=== PATIENT | female | born 1995 | race Caucasian/White ===

== ENCOUNTER 2017-09-24 18:17 | Emergency (ER) | payer OTHER ==
[~2017-09-24] VITALS: Ht 154.9 cm; Wt 56.0 kg
[2017-09-24 18:24] VITALS: TEMP 36.9; Ht 154.9 cm; Wt 56.0 kg
[2017-09-24] MEDS ORDERED: CEFTRIAXONE SOD 350MG/ML 1 GM VIAL IM ONE (19:30)
[2017-09-24] MEDS ORDERED: AZITHROMYCIN 250 MG TAB PO ONE (19:30)
--- NOTE | 2017-09-24 19:49 | EMERGENCY ROOM VISIT NOTE ---
History First contact with patient: 18:29 Chief Complaint: STD FEMALE Stated Complaint: STD CHECK-FEMALE TESTING History of Present Illness The patient is a 21 year old female who presents to the Emergency Room of sexually transmitted infection. She stated that she is currently asymptomatic but recently found out that her partner was tested positive for chlamydia and would like to be tested. denies any vaginal discharge, itching, nausea, vomiting, abdominal pain, fevers or chills. Denies any rash/vesicles in the genital area Her last intercourse was about 3 weeks ago and was unprotected. LMP 1 week ago Review of Systems See HPI for pertinent positives & negatives. A total of 10 systems reviewed and were otherwise negative. Constitutional: No fever, No chills Eyes: No worsening of vision ENT: No hearing loss Abdomen: No pain, No nausea, No vomiting, No diarrhea Genitourinary - Female: No dysuria, No urinary frequency, No urinary urgency , No rash, No vaginal discharge, No vaginal itching Endocrine: No fatigue Hematologic / Lymphatic: No abnormal bleeding/bruising Integumentary: No rash Past Medical/Surgical History Medical Problems: (1) Asthma (2) Deviated septum Social History Smoking Status: Never Smoker Alcohol Use: occasionally Drug Use: none Physical Exam Vital Signs Date Time Temp Pulse Resp B/P (MAP) Pulse Ox O2 Delivery O2 Flow Rate FiO2 09/24/17 18:24 36.9 80 18 124/69 96 Room Air Physical Exam GENERAL: Patient is in no acute distress. HEENT: No acute trauma, normocephalic atraumatic, mucous membranes moist, no nasal congestion, no scleral icterus. NECK: No stridor, no adenopathy, no meningismus, trachea is midline. LUNGS: Clear to auscultation bilaterally, no wheeze, no rhonchi, breath sounds equal. HEART: Without murmurs gallops or rubs, regular rate and rhythm. ABDOMEN: Soft, nontender, bowel sounds positive, no hernias, no peritonitis. EXTREMITIES: No cyanosis or edema, full range of motion of all the joints without pain or difficulty, no signs for acute trauma. NEUROLOGIC: Oriented x 3, no acute motor or sensory deficits, no focal weakness. SKIN: No rash, no jaundice, no diaphoresis. General Appearance: WD/WN, no apparent distress Eyes: normal inspection ENT: hearing grossly normal Neck: supple Respiratory/Chest: lungs clear, normal breath sounds, no accessory muscle use Cardiovascular: regular rate, rhythm Abdomen / GI: normal bowel sounds, non tender, soft Genitourinary - Female: external genitalia normal, normal pelvic exam, normal cervix, + pertinent finding ( thin whitish Discharge) Extremities: no pedal edema Neurologic/Psych: alert, normal mood/affect, oriented x 3 Medical Decision & Procedures Medications Administered 250 mg IM ceftriaxone, 1 g azithromycin by mouth Medical Decision Prior records/ancillary studies reviewed. Triage Nursing notes reviewed. The patient's history was concerning for STI considering exposure to partner with chlamydia. Vaginal speculum exam including a bimanual exam was performed with GC and chlamydia testing . Considering potential exposure she was empirically treated with 250 mg IM ceftriaxone and 1 g by mouth azithromycin. Counseled about safe sex practices/ control. Recommended to follow-up if develops any vaginal symptoms like to discharge, itching Impression Primary Impression: Exposure to chlamydia Departure Information Referrals No Doctor, Assigned (PCP) Patient Instructions Formerly [facility] Resident Tracking Resident Involvement: Resident Care Provided Care Provided: Adult ED
[2017-09-24 20:06] VITALS: BP 122/70; PULSE 72; O2SAT 98
--- NOTE | 2017-09-24 23:49 | EMERGENCY ROOM VISIT NOTE ---
History Report prepared by Beatriceibdotty: Thierno Hunter Under the Supervision of: Brie FullerO. First contact with patient: 18:29 Chief Complaint: STD FEMALE Stated Complaint: STD CHECK-FEMALE TESTING History of Present Illness The patient is a 21 year old female who presents to the Emergency Room with complaints of a possible STD exposure that occurred two and a half weeks ago. The patient states that she was having sexual intercourse with her partner two and a half weeks ago. She reports that she found out the patient was experiencing urinary symptoms and got tested for STDs over the weekend. The patient states he tested positive for Chlamydia today and informed her. She states that she has not been experiencing any symptoms for an STI. The patient denies vaginal discharge, vaginal bleeding, headache, change in vision, fevers, chest pain, shortness of breath, nausea, vomiting, diarrhea, pain with urination , and melena. The patient states that her last normal menstrual period was a week ago. She reports a history of asthma and deviated septum. Source of History: patient Onset: two and a half weeks ago Position: other (global) Quality: other (global) Timing: other (episode of exposure) Associated Symptoms: No fevers, No headache, No chest pain, No SOB, No nausea, No vomiting, No melena, No diarrhea, No urinary symptoms Review of Systems See HPI for pertinent positives & negatives. A total of 10 systems reviewed and were otherwise negative. Past Medical & Surgical Medical Problems: (1) Asthma (2) Deviated septum Family History Patient reports no known family medical history. Social History Smoking Status: Never Smoker Smokeless Tobacco Use: No Alcohol Use: occasionally Drug Use: none Marital Status: single Housing Status: lives with roommate Occupation Status: [employer] student Allergies Coded Allergies: No Known Allergies (Unverified , 09/24/17) Physical Exam Vital Signs Date Time Temp Pulse Resp B/P (MAP) Pulse Ox O2 Delivery O2 Flow Rate FiO2 09/24/17 20:06 72 20 122/70 98 09/24/17 18:24 36.9 80 18 124/69 96 Room Air Physical Exam GENERAL: Sitting up in bed, alert, well appearing, well nourished, no distress, non-toxic EYE EXAM: normal conjunctiva. OROPHARYNX: no exudate, no erythema, lips, buccal mucosa, and tongue normal and mucous membranes are moist NECK: supple, no nuchal rigidity, no adenopathy, non-tender LUNGS: Clear to auscultation. Normal chest wall mechanics HEART: no murmurs, S1 normal and S2 normal ABDOMEN: abdomen soft, non-tender, normo-active bowel sounds, no masses, no rebound or guarding. SKIN: no rashes and no bruising UPPER EXTREMITIES: upper extremities are grossly normal. LOWER EXTREMITIES: No pitting edema. NEURO EXAM: Normal sensorium, cranial nerves II-XII grossly intact, normal speech, no gross weakness of arms, no gross weakness of legs. Gross sensation intact. : See resident's note. Medical Decision & Procedures Laboratory Results Test 09/24/17 18:59 09/24/17 19:30 Laboratory results per my review. Medications Administered Medications (Trade) Dose Ordered Sig/Rama Route Start Time Stop Time Status Last Admin Dose Admin Ceftriaxone Sodium (Rocephin Im) 250 mg NOW ONCE IM 09/24/17 19:30 09/24/17 19:32 DC 09/24/17 19:59 250 MG Azithromycin (Zithromax Tab) 1,000 mg NOW ONCE PO 09/24/17 19:30 18 19:32 DC 09/24/17 19:59 1,000 MG ED Course ED COURSE: Vital signs were reviewed and showed The patients medical record was reviewed The above diagnostic studies were performed and reviewed. ED treatments and interventions as stated above. 1850: The patient was evaluated in room A09A. A complete history and physical examination was performed. 0: Ordered Azithromycin 1000 mg PO, Rocephin 250 mg IM. 1999: Upon reevaluation, the patient is resting comfortably. The resident discussed my findings with the patient and she understands and agrees with the treatment plan. Based on the patients age, coexisting illnesses, exam and lab findings the decision to treat as an outpatient was made. The patient remained stable while under my care. The patient appeared well at the time of discharge. Medical Decision Differential diagnoses includes but is not limited to appendicitis, diverticulitis, small bowel obstruction, malignancy, hernia, urinary tract infection, torsion, and ectopic (if female), perforation, trauma, infectious. Patient is a 21-year-old female who received phone call from a sexual partner that was diagnosed with chlamydia. She is completely asymptomatic. She has no other complaints. At this time we offered pelvic exam and cultures first treatment. She elected to be treated. She was given azithromycin and Rocephin. She was seen independently in the resident. She was discharged to follow-up with PCP as an outpatient. Discussed with Pt concerning signs and symptoms to watch out for. Pt was instructed to follow up with their PCP and discussed with the patient their option to return to the ED at anytime for persistent or worsening symptoms. The appropriate anticipatory guidance and out- patient management, including indications for return to the emergency department , were explained at length to the patient and understood. Medication Reconcilliation Current Medication List: was personally reviewed by me Blood Pressure Screening Patient's blood pressure: Normal blood pressure Impression Primary Impression: Exposure to chlamydia Scribe Attestation The scribe's documentation has been prepared under my direction and personally reviewed by me in its entirety. I confirm that the note above accurately reflects all work, treatment, procedures, and medical decision making performed by me. Departure Information Dispostion Home / Self-Care Referrals No Doctor, Assigned (PCP) Forms HOME CARE DOCUMENTATION FORM, IMPORTANT VISIT INFORMATION, WORK / SCHOOL INSTRUCTIONS Patient Instructions My [facility] Additional Instructions You have been examined and treated today on an emergency basis only. This is not a substitute for, or an effort to provide, complete comprehensive medical care. It is impossible to recognize and treat all injuries or illnesses in a single emergency department visit. - Return for worsening symptoms or if you develop any vaginal discharge, itching , abdominal pain or any other concerning symptoms. - You received empiric treatment for Gonorrhea and Chlamydia with azithromycin and ceftriaxone. - Recommend safe sexual practices using barrier contraception like condoms
== END 2017-09-24 20:08 | disposition home or self-care (01) ==
LOC: C.EDB 18:19 → C.EDA 20:08
DX: Z20.2 Contact with and (suspected) exposure to infections with a predominantly sexual mode of transmission (principal); J45.909 Unspecified asthma, uncomplicated

== ENCOUNTER 2017-10-21 17:14 | Emergency (ER) | payer OTHER ==
[~2017-10-21] VITALS: Ht 157.5 cm; Wt 55.9 kg
[2017-10-21 17:27] VITALS: TEMP 37; Ht 157.5 cm; Wt 55.9 kg
--- NOTE | 2017-10-21 18:50 | EMERGENCY ROOM VISIT NOTE ---
History Report prepared by Chava: Babs Bowling Under the Supervision of: Dr. Martin Pickett M.D. First contact with patient: 18:16 Chief Complaint: VAGINAL DISCHARGE Stated Complaint: SWOLLEN FEET,VAGINAL ITCHING History of Present Illness The patient is a 22 year old female who presents to the Emergency Room with complaints of persistent vaginal itching that began a few days ago. The patient states that she was in [facility] during the past week, noting that she was walking barefoot most of the time. She reports that she has been experiencing "cloudy" discharge, but denies any burning with urination or foul odor. She notes that one month ago she was treated for chlamydia and her symptoms had improve since then. The patient states that before she boarded the plane on her way back home, she noticed her feet were swelling up, but denies them being red. She notes that now her feet are back to normal size, but still has some numbness in her heels and itching in between her toes. The patient states that she has never experienced similar symptoms in her feet before. She reports she has been experiencing some chills, but denies any fevers, nausea, vomiting, or diarrhea. Source of History: patient Onset: few days ago Position: other (genitals) Quality: other (vaginal itching) Timing: other (persistent) Associated Symptoms: No fevers, No nausea, No vomiting, No diarrhea Note: Associated symptoms: feet were swollen and still has some numbness in her heels and itching in between her toes. "cloudy" discharge. Patient denies:denies her feet being red, foul odor or pain with urination. Review of Systems See HPI for pertinent positives and negatives. A total of ten systems were reviewed and were otherwise negative. Past Medical & Surgical Medical Problems: (1) Asthma (2) Deviated septum Social History Smoking Status: Never Smoker Alcohol Use: occasionally Drug Use: none Marital Status: single Housing Status: lives with roommate Occupation Status: [employer] student Current/Historical Medications Scheduled Control Pills ( Control Pills), 1 TAB PO DAILY Cetirizine (Zyrtec), 10 MG PO DAILY Ibuprofen Tab (Advil), 200 MG PO PRN UD Allergies Coded Allergies: No Known Allergies (Unverified , 10/21/17) Physical Exam Vital Signs Date Time Temp Pulse Resp B/P (MAP) Pulse Ox O2 Delivery O2 Flow Rate FiO2 10/21/17 19:15 98 18 121/93 99 Room Air 10/21/17 17:27 37.0 88 18 134/88 100 Room Air Physical Exam GENERAL: Awake, alert, well-appearing, in no distress HENT: Normocephalic, atraumatic. Oropharynx unremarkable. EYES: Normal conjunctiva. Sclera non-icteric. NECK: Supple. No nuchal rigidity. FROM. No JVD. RESPIRATORY: Clear to auscultation. CARDIAC: Regular rate, normal rhythm. Extremities warm and well perfused. Pulses equal. ABDOMEN: Soft, non-distended. No tenderness to palpation. No rebound or guarding. No masses. PELVIC: Mild amount of thick white discharge, no lesions, and no CMT or adnexal tenderness. RECTAL: Deferred. MUSCULOSKELETAL: Chest examination reveals no tenderness. The back is symmetrical on inspection without obvious abnormality. There is no CVA tenderness to palpation. No joint edema. LOWER EXTREMITIES: Scant bilateral plantar swelling otherwise no significant pedal edema or lower extremity edema. Calves are equal size bilaterally and non- tender. No discoloration. NEURO: Normal sensorium. No sensory or motor deficits noted. SKIN: No rash or jaundice noted. Medical Decision & Procedures Laboratory Results 10/21/17 18:40 Red Blood Count 4.54, Mean Corpuscular Volume 91.2, Mean Corpuscular Hemoglobin 30.8, Mean Corpuscular Hemoglobin Concent 33.8, Mean Platelet Volume 11.3, Neutrophils (%) (Auto) 65.6, Lymphocytes (%) (Auto) 26.6, Monocytes (%) (Auto) 6.7, Eosinophils (%) (Auto) 0.7, Basophils (%) (Auto) 0.1, Neutrophils # (Auto) 5.03, Lymphocytes # (Auto) 2.04, Monocytes # (Auto) 0.51, Eosinophils # (Auto) 0.05, Basophils # (Auto) 0.01 10/21/17 18:40 Test 10/21/17 18:40 10/21/17 18:47 10/21/17 19:25 White Blood Count 7.66 K/uL (4.8-10.8) Red Blood Count 4.54 M/uL (4.2-5.4) Hemoglobin 14.0 g/dL (12.0-16.0) Hematocrit 41.4 % (37-47) Mean Corpuscular Volume 91.2 fL (80-100) Mean Corpuscular Hemoglobin 30.8 pg (25-34) Mean Corpuscular Hemoglobin Concent 33.8 g/dl (32-36) Platelet Count 282 K/uL (130-400) Mean Platelet Volume 11.3 fL (7.4-10.4) Neutrophils (%) (Auto) 65.6 % Lymphocytes (%) (Auto) 26.6 % Monocytes (%) (Auto) 6.7 % Eosinophils (%) (Auto) 0.7 % Basophils (%) (Auto) 0.1 % Neutrophils # (Auto) 5.03 K/uL (1.4-6.5) Lymphocytes # (Auto) 2.04 K/uL (1.2-3.4) Monocytes # (Auto) 0.51 K/uL (0.11-0.59) Eosinophils # (Auto) 0.05 K/uL (0-0.5) Basophils # (Auto) 0.01 K/uL (0-0.2) RDW Standard Deviation 43.1 fL (36.4-46.3) RDW Coefficient of Variation 13.1 % (11.5-14.5) Immature Granulocyte % (Auto) 0.3 % Immature Granulocyte # (Auto) 0.02 K/uL (0.00-0.02) Anion Gap 8.0 mmol/L (3-11) Est Creatinine Clear Calc Drug Dose 104.4 ml/min Estimated GFR () 145.9 Estimated GFR (Non- 125.9 BUN/Creatinine Ratio 11.9 (10-20) Calcium Level 8.9 mg/dl (8.5-10.1) Total Bilirubin 0.8 mg/dl (0.2-1) Direct Bilirubin 0.2 mg/dl (0-0.2) Aspartate Amino Transf (AST/SGOT) 83 U/L (15-37) Alanine Aminotransferase (ALT/SGPT) 76 U/L (12-78) Alkaline Phosphatase 66 U/L (45-117) Total Protein 8.5 gm/dl (6.4-8.2) Albumin 4.0 gm/dl (3.4-5.0) Lipase 127 U/L (73-393) Urine Color YELLOW Urine Appearance CLEAR (CLEAR) Urine pH 6.0 (4.5-7.5) Urine Specific Calvin 1.015 (1.000-1.030) Urine Protein NEG (NEG) Urine Glucose (UA) NEG (NEG) Urine Ketones NEG (NEG) Urine Occult Blood NEG (NEG) Urine Nitrite NEG (NEG) Urine Bilirubin NEG (NEG) Urine Urobilinogen NEG (NEG) Urine Leukocyte Esterase TRACE (NEG) Urine WBC (Auto) 1-5 /hpf (0-5) Urine RBC (Auto) 0-4 /hpf (0-4) Urine Hyaline Casts (Auto) 0 /lpf (0-5) Urine Epithelial Cells (Auto) 20-30 /lpf (0-5) Urine Bacteria (Auto) NEG (NEG) Urine Test NEG (NEG) Date/Time Source Procedure Growth Status 10/21/17 19:25 Vaginal Drainage Trichomonas Preparation - Final Complete Laboratory results reviewed by me ED Course 1817: The patient was evaluated in room A6. A complete history and physical exam was performed. 1915: I reevaluated the patient and performed a pelvic exam with nurse supervision. 2004: I reevaluated the patient and I updated her on test findings. She verbalized complete understanding and agreement of the treatment plan. The patient was discharged home. Medical Decision I reviewed the patient's past medical history, medications, and the nursing notes as described above. The patient's presentation and history were concerning for plantar fasciitis, cellulites, parasitic infection, yeast infection, STI, and DVT. The patient is a 22-year-old woman who presents emergency department with a complaint of vaginal itching and white discharge after going to [place] for spring well as bilateral lower extremity swelling that began prior to her flight back worse on the airplane and then resolved over the course of a couple days per hpi. Of note, the patient has a prior history of chlamydia treated last month. Otherwise the patient denies any linear streaking or redness on her feet that would make me concerned for parasite/hookworm given the patient [place] the [place] patient. Given the resolution of her swelling and still some residual plantar swelling symptoms likely related to a plantar fasciitis. Labs unremarkable including WBC within normal limits. Pelvic exam demonstrates thick white discharge but otherwise no lesions. No CMT or adnexal tenderness. Symptoms most likely vaginal yeast infection but will treat empirically for GCC given the patient's risk factors. Additionally the patient's lower extremity swelling which is now mostly resolved is likely due to a plantar fasciitis. Plan for NSAIDs. Findings and plan for follow-up reviewed with patient. Patient agreeable and d/c'd per discharge instructions. Medication Reconcilliation Current Medication List: was personally reviewed by me Blood Pressure Screening Patient's blood pressure: Normal blood pressure Blood pressure disposition: Did not require urgent referral Impression Primary Impression: Vaginal candidiasis Additional Impression: Plantar fasciitis, bilateral Scribe Attestation The scribe's documentation has been prepared under my direction and personally reviewed by me in its entirety. I confirm that the note above accurately reflects all work, treatment, procedures, and medical decision making performed by me. Departure Information Dispostion Home / Self-Care Referrals No Doctor, Assigned (PCP) Forms HOME CARE DOCUMENTATION FORM, IMPORTANT VISIT INFORMATION, WORK / SCHOOL INSTRUCTIONS Patient Instructions ED Plantar Fasciitis, ED Vaginal Infec Fungal Rupali, My [facility] Additional Instructions Please follow up with [facility] in the next 1-3 days for re-evaluation. You likely have a vaginal yeast infection. You were also treated for gonorrhea and chlamydia given your risk. You feet swelling is most likely due to inflammation for walking barefoot. Otherwise, your exam and lab results did not show signs of an emergent condition at this time. Your cultures are still pending and you will only be contact if the results are positive. Acetaminophen or ibuprofen for pain and swelling as needed. Drink plenty of fluids to ensure hydration. Return to the emergency department for worsening symptoms as described in the accompanying instructions. Problem Qualifiers
[2017-10-21] MEDS ORDERED: IBUP-103 PO (18:52)
[2017-10-21] MEDS ORDERED: CETI10TA84 PO (18:52)
[2017-10-21] MEDS ORDERED: BCPILLS PO (18:52)
[2017-10-21 18:57] LABS: BASO % 0.1 %; BASO ABS # 0.01 K/uL (0-0.2); EOS % 0.7 %; EOS ABS # 0.05 K/uL (0-0.5); HEMATOCRIT 41.4 % (37-47); IG# 0.02 K/uL (0.00-0.02); LYMPH % 26.6 %; LYMPH ABS # 2.04 K/uL (1.2-3.4); MEAN CELL VOLUME 91.2 fL (80-100); MEAN CORPUSCULAR HEMOGLOBIN 30.8 pg (25-34); MEAN CORPUSCULAR HGB CONC 33.8 g/dl (32-36); MEAN PLATELET VOLUME 11.3 fL (7.4-10.4); MONO % 6.7 %; MONO ABS # 0.51 K/uL (0.11-0.59); NEUT % 65.6 %; NEUT ABS # 5.03 K/uL (1.4-6.5); PLATELET COUNT 282 K/uL (130-400); RED CELL DISTRIBUTION WIDTH CV 13.1 % (11.5-14.5); RED CELL DISTRIBUTION WIDTH SD 43.1 fL (36.4-46.3); WHITE BLOOD COUNT 7.66 K/uL (4.8-10.8)
[2017-10-21 19:15] VITALS: BP 121/93; PULSE 98; O2SAT 99
[2017-10-21 19:16] LABS: CALCIUM 8.9 mg/dl (8.5-10.1); CREATININE 0.68 mg/dl (0.60-1.20); POTASSIUM 3.4 mmol/L (3.5-5.1)
[2017-10-21 19:19] LABS: TOTAL PROTEIN 8.5 gm/dl (6.4-8.2)
[2017-10-21] MEDS ORDERED: AZITHROMYCIN 250 MG TAB PO STA (19:30)
[2017-10-21] MEDS ORDERED: CEFTRIAXONE SOD 350MG/ML 1 GM VIAL IM STA (19:30)
[2017-10-21] MEDS ORDERED: FLUCONAZOLE 50 MG TAB PO STA (19:30)
== END 2017-10-21 20:25 | disposition home or self-care (01) ==
LOC: C.EDB 17:14 → C.EDA 20:25
DX: B37.3 Candidiasis of vulva and vagina (principal); M72.2 Plantar fascial fibromatosis; Z86.19 Personal history of other infectious and parasitic diseases; J45.909 Unspecified asthma, uncomplicated; Z79.3 Long term (current) use of hormonal contraceptives